=== PATIENT | male | born 1975 | race Hispanic/Latino ===

== ENCOUNTER 2024-01-23 16:35 | Emergency (ER) | payer OTHER ==
[~2024-01-23] VITALS: Ht 172.7 cm; Wt 120.2 kg
[2024-01-23] MEDS ORDERED: CLEOCIN HCL300 MG PO (17:08)
[2024-01-23] MEDS: CLINDAMYCIN 600MG / 50ML 50 ML IV ONE (18:47)
[2024-01-23] MEDS: Clindamycin INJ 300 MG/50 ML 50 ML IV ONE (18:47)
[2024-01-23 19:32] VITALS: PULSE 85; RESP 18; TEMP 98.2; O2SAT 97
== END 2024-01-23 19:30 | disposition home or self-care (01) ==
LOC: FSED 16:40
DX: M79.644 Pain in right finger(s) (principal); L03.011 Cellulitis of right finger; E11.9 Type 2 diabetes mellitus without complications
CPT/HCPCS: 99283